=== PATIENT | male | born 1970 | race Two or more races ===

== ENCOUNTER → 2018-10-30 | Outpatient (CLI) | payer OTHER | END | disposition home or self-care (01) | LOC: XYW 08:25 | PROVIDERS: ATTEND Internal Medicine | DX: I07.1 Rheumatic tricuspid insufficiency (principal) | CPT/HCPCS: 93306 ==

== ENCOUNTER → 2018-11-04 | Outpatient (CLI) | payer OTHER ==
[~2018-11-04] VITALS: Ht 170.2 cm; Wt 99.8 kg
[~2018-11-04] MED LIST: ADENOSINE 67 MG in GIVE UN-DILUTED 0 ML IV STA
[2018-11-04 09:30] VITALS: BP 105/63
== END | disposition home or self-care (01) ==
LOC: EDUNIT# 08:30 → XY 08:38
PROVIDERS: ATTEND Internal Medicine
DX: R07.9 Chest pain, unspecified (principal)
CPT/HCPCS: 78452; 93017; A9500; J0153